=== PATIENT | male | born 1990 | race African-American/Black ===

== ENCOUNTER 2018-06-21 16:27 | Emergency (ER) | payer OTHER ==
[~2018-06-21] VITALS: Ht 172.7 cm; Wt 80.7 kg
[2018-06-21 16:46] VITALS: BP 129/74
[2018-06-21] MEDS ORDERED: ROBAXIN500 MG PO (16:55)
[2018-06-21] MEDS ORDERED: IBUPROFEN600 MG ORAL (16:55)
[2018-06-21] MEDS ORDERED: LIDOCAINE700 M1 TP (16:55)
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
[2018-06-21] MEDS ORDERED: Ketorolac 30mg Inj IM ONE (17:00)
[2018-06-21] MEDS ORDERED: Methocarbamol 500mg tab ORAL ONE (17:00)
[2018-06-21 17:02] VITALS: BP 129/74
== END 2018-06-21 17:46 | disposition home or self-care (01) ==
LOC: EMR 17:00
DX: M54.2 Cervicalgia (principal); M54.9 Dorsalgia, unspecified; V43.52XA Car driver injured in collision with other type car in traffic accident, initial encounter; Y92.410 Unspecified street and highway as the place of occurrence of the external cause
CPT/HCPCS: 96372; 99283; J1885